=== PATIENT | male | born 1985 | race Caucasian/White ===

== ENCOUNTER → 2016-09-05 | Outpatient (REF) ==
--- NOTE | 2016-09-05 11:40 | REP ---
Lumbar spine series: Three views. History: Degenerative disc disease. Disability. Findings: Lateral views are suggestive of bilateral L5 spondylolysis. There is a grade 1 4 mm L5-S1 spondylolisthesis. There is degenerative narrowing of the 4-5 disc indicating degenerative disc disease at this level. Pedicles and posterior elements are otherwise intact. Vertebral body heights are preserved. Sacrum and SI joints are intact. Psoas margins are symmetric. Impression: Findings suggestive of bilateral spondylolysis at L5 with grade 1 L5-S1 spondylolisthesis. Degenerative disc disease at L4-5. Signed by Armani Baker MD 09/05/2016 08:11 P
== END ==
LOC: M SMT 10:18
PROVIDERS: ATTEND Internal Medicine
DX: Z02.71 Encounter for disability determination (principal); M51.36 Other intervertebral disc degeneration, lumbar region